=== PATIENT | male | born 1975 | race Caucasian/White ===

== ENCOUNTER 2021-05-16 09:52 | Emergency (ER) | payer BC ==
[~2021-05-16] VITALS: Ht 180.3 cm; Wt 90.7 kg
--- NOTE | 2021-05-19 07:19 | EKG ---
[facility] [address] [facility] [place], [place] [address] Signed Normal sinus rhythm Normal ECG No previous ECGs available Confirmed by MIREYA GARCIA MD ([id number]) on 05/19/2021 7:19:33 AM Electronically Signed By: MIREYA GARCIA MD 05/19/21 0719 PATIENT NAME: CHASE WALLACE Electrocardiogram DATE OF : 73 PHYSICIAN: MIREYA GARCIA MD REPORT #: [id number] REPORT IS CONFIDENTIAL AND NOT TO BE RELEASED WITHOUT AUTHORIZATION
== END 2021-05-16 12:11 | disposition home or self-care (01) ==
LOC: ED 09:52
DX: R55 Syncope and collapse (principal); R00.2 Palpitations; Z88.5 Allergy status to narcotic agent
CPT/HCPCS: 36415; 80048; 84484; 85025; 93005; 93010; 99285-25

== ENCOUNTER 2021-12-17 05:40 | Day surgery (SDC) | payer OTHER ==
[~2021-12-17] VITALS: Ht 180.3 cm; Wt 93.2 kg
[2021-12-17] MEDS ORDERED: HYDROCODON-ACE1 EA11 PO (07:44)
[2021-12-17] MEDS ORDERED: CELECOXIB200 MG PO (07:44)
--- NOTE | 2021-12-17 07:56 | NUR ---
12/17/21 0756 Kyle,Sindy [id number] PT ARRIVED TO PACU ON 6L VIA MASK, PT REACTIVE TO TACTILE STIMULI AND DENIES PAIN, PT EASILY FALLS BACK TO SLEEP. VSS. 0753 O2 REMOVED. PT ABLE TO MOVE FINGERS ON RIGHT SIDE, REPORTS NUMBNESS. RESP EVEN AND UNLABORED. PT EASILY FALLS BACK TO SLEEP OFF AND ON.
--- NOTE | 2021-12-17 08:33 | NUR ---
0820 PATIENT ALERT AND ORIENTED. PATIENT DENIES ANY PAIN OR NAUSEA. BREATHING EQUAL AND UNLABORED. OXYGEN SATURATIONS ABOVE 95% ON ROOM AIR. DRESSING CLEAN, DRY AND INTACT. CRYO APPLIED TO EXTERMITY WITH CLOTH BARRIER BETWEEN. IMMOBLIZER ON AND EXTERMITY ELEVATED. IVF INFUSING. SCD'S ON. PATIENT WATCHING TV AND DRINKING WATER. NO QUESTIONS AT THIS TIME. CALL LIGHT WITHIN REACH NO FUTHER NEEDS.
--- NOTE | 2021-12-17 09:13 | NUR ---
0900 PATIENT ABLE TO AMBULATE TO THE RESTOOM. PATIENT WAS ABLE TO VOID. PATIENT AMBULATED BACK AND TOLERATED IT WELL. PATIENT DENIES PAIN AND BEING NAUSEATED. CRYO CUFF APPLIED. PATIENT EDUCATED ON IMMOBLIZER. NO QUESTIONS AT THIS TIME. CALL LIGHT WITHIN REACH NO FUTHER NEEDS.
--- NOTE | 2021-12-17 09:52 | NUR ---
0920 PATIENT ALERT AND ORIENTED. BREATHING EQUAL AND UNLABORED. OXYGEN SATURATIONS 95% ON ROOM AIR. PATIENT DENIES PAIN OR BEING NAUSEATED. PATIENT DRESSING CLEAN, DRY AND INTACT. 0930 PATIENT HAS MET DISCHARGE CRITERIA. PATIENT ABLE TO DRESS SELF AND TOLERATED IT WELL. PATIENT DISCHARGE INSRTUCTIONS UNDERSTOOD. NO QUESTIONS AT THIS TIME. IV D/C'D WNL. PATIENT WAS WHEELED OUT OF FACILTY TO PRIVATE AUTO. SPOUSE IAN WITH HIM. NO FUTHER NEEDS.
--- NOTE | 2021-12-17 11:10 | OR ---
[facility] [address] [place], [place] [address] Signed DATE OF OPERATION: 12/17/2021 SURGEON: Abdias Stanley MD PREOPERATIVE DIAGNOSIS: Partial rotator cuff tear, right shoulder. POSTOPERATIVE DIAGNOSIS: Partial rotator cuff tear, right shoulder. PROCEDURE PERFORMED: Right shoulder arthroscopy with debridement of partial rotator cuff tear. ACCESS CLINICIAN: None. ANESTHESIA: General. BLOOD LOSS: Minimal. BRIEF HISTORY: De is a 46-year-old gentleman with recalcitrant right shoulder pain. He had undergone nonoperative treatment without substantial relief. Risks and benefits of operative treatment were discussed with him and he elected to proceed. Once consent was obtained, he was taken to the operating room. After adequate anesthesia, he was placed in the beach chair position. All downside pressure points were well padded. The shoulder was prepped and draped in a standard sterile fashion. Shoulder was injected with 15 mL of 0.25% Marcaine with epinephrine as well as the subacromial space. Standard posterior portal was made and the scope was introduced into the shoulder. ARTHROSCOPIC FINDINGS: There was mild synovitis around the bicipital . There was a partial rotator cuff tear involving the articular surface of the anterior half of the supraspinatus. This was about 20%. The biceps had some minor fraying in the tunnel itself. No other significant biceps tendinopathy. Biceps anchor and labrum were intact. The remainder of the rotator cuff was intact. The glenohumeral surfaces were intact. The subacromial space showed no thickening, bursitis or scar tissue. It was completely wide open and the superior surface of the rotator cuff was intact. Electronically Signed By: ABDIAS STANLEY MD 12/17/21 1110 PATIENT NAME: DE WALLACE OPERATIVE REPORT DATE OF : 73 REPORT #: [id number] PHYSICIAN: ABDIAS STANLEY MD PCP: HANH RIOS MD REPORT IS CONFIDENTIAL AND NOT TO BE RELEASED WITHOUT AUTHORIZATION [facility] [address] [place], [place] [address] Signed DESCRIPTION OF PROCEDURE: The standard anterior portal was made using an outside-in technique and the rotator cuff partial tear was debrided using the shaver down to the bony rim. The water was shut off and there was good bleeding from the base of the tear. The biceps was lightly debrided as well and the scope was withdrawn and placed in the subacromial space. was undertaken. Again, there was absolutely no bursitis at all. The undersurface of the acromion was type 1 and the rotator cuff surface was intact. The scope was withdrawn. Portals were closed with 3-0 nylon and dressed with Allevyn and an OpSite. He tolerated the procedure well. All sponge, needle, and instrument counts were correct. Abdias Stanley MD BA/DOEL /[id number] Copies: ~ Electronically Signed By: ABDIAS STANLEY MD 09/30/22 1110 PATIENT NAME: DE WALLACE OPERATIVE REPORT DATE OF : 73 REPORT #: [id number] PHYSICIAN: ABDIAS STANLEY MD PCP: HANH RIOS MD REPORT IS CONFIDENTIAL AND NOT TO BE RELEASED WITHOUT AUTHORIZATION
== END 2021-12-17 09:30 | disposition home or self-care (01) ==
LOC: DS 05:40
PROVIDERS: ATTEND Specialist
PROC: 0RBJ4ZZ Excision of Right Shoulder Joint, Percutaneous Endoscopic Approach (ICD-10-PCS; 2021-12-17)
PROC: 0LB14ZZ Excision of Right Shoulder Tendon, Percutaneous Endoscopic Approach (ICD-10-PCS; 2021-12-17)
PROC: 0LQ14ZZ Repair Right Shoulder Tendon, Percutaneous Endoscopic Approach (ICD-10-PCS; principal; 2021-12-17 07:30)
DX: M75.111 Incomplete rotator cuff tear or rupture of right shoulder, not specified as traumatic (principal); M75.21 Bicipital tendinitis, right shoulder; M65.811 Other synovitis and tenosynovitis, right shoulder; G89.18 Other acute postprocedural pain
CPT/HCPCS: 01630; 64415; 76942; J0330; J0690; J1100; J1885; J2001; J2250; J2405; J2704; J2795; J7121